=== PATIENT | female | born 1960 | race Caucasian/White ===

== ENCOUNTER 2019-09-08 01:39 | Day surgery (SDC) | payer BC, SELFPAY ==
[2019-09-06 11:01] VITALS: BMI 31.8
[2019-09-08 08:36] VITALS: BP 181/87; PULSE 94; RESP 18; TEMP 36.7; O2SAT 97; BMI 31.4
[2019-09-08] MEDS: LACTATED RINGERS 1,000 ML 150 ML IV CONT (08:53)
--- NOTE | 2019-09-08 09:08 | P.CONGI_ITS ---
Assessment and Plan Additional Plan This is a 59-year-old white female patient seen in evaluation at the request of Favioal Ramirez. Patient complains of abdominal pain, irregular bowel movements. She notices pain port that is poorly localized. Pain is often in the epigastric right upper quadrant and left upper quadrants of her abdomen. Patient reports irregular bowel movements. Constipation for which she is trying MiraLax. She denies any blood in her stools. She feel describes the pain a in mid abdomen as a ?like a rock, she states the pain is intermittent. and is often severe. She currently is trying omeprazole on milk of magnesia with no change in her symptoms. Medications include Anafranil, clonazepam, Prilosec, milk a magnesia No known drug allergies Review of systems last colonoscopy was 2011. EGD was more than 8 years ago. Physical exam reveals patient to be somewhat jittery. Vital signs stable. HEENT exam unremarkable. She is anicteric. Lungs are clear to auscultation and percussion. Heart is without murmur or extra sounds. Abdominal exam bowel sounds are present soft no localized tenderness evident. No masses are noted. Digital external rectal exam is normal. Impression 1. Abdominal pain. Epigastric pain seems to be the focus. But other abdominal pain described. No response to proton pump inhibitor at present. 2. Constipation. Change in bowel habit described. May be related to her abdominal discomfort. Current we trying milk of magnesia for control of bowel habits. \ Symptoms may be functional. She appears to have a certain degree of anxiety. Plan is to proceed with both colonoscopy and EGD. Other recommendations will be given after endoscopy. GI Consult Note Consult date/time: 09/08/19 09:08 HPI: Francisca Ragsdale is a 59 year old female [facility]LY [facility], [facility] Past Medical History Medical History (Updated 09/08/19 @ 09:13 by Cornelius Durant MD) Anxiety Obesity Social History Social History Smoking status: Never smoker Meds Home Medications and Allergies Home Medications Medication Instructions Recorded Confirmed Type clomipramine [Anafranil] 75 mg PO QACLUNCH 09/06/19 09/06/19 History clonazepam 0.25 mg PO HS PRN 09/06/19 09/06/19 History omeprazole 20 mg PO BID 09/06/19 09/06/19 History Allergies Allergy/AdvReac Type Severity Reaction Status Date / Time No Known Allergies Allergy Unknown Unverified 09/08/19 08:30 Vital Signs Vital Signs - 24 hr 09/08/19 08:36 Temperature 36.7 C Pulse Rate 94 Respiratory Rate 18 Blood Pressure 181/87 H Pulse Oximetry 97
--- NOTE | 2019-09-08 09:13 | P.PNAN_ITS ---
Anes - Initial Pre Proc Eval Procedure: Operation Date: 09/08/19 09:30 Proposed Procedures p Esophagogastroduodenoscopy & Colonoscopy - Domenico Carnes MD Date/Time: 09/08/19 09:13 Surgeon: Domenico Carnes MD Pre Op Diagnosis: Constipation, Epigastric Pain Patient Data Age: 59 Gender: F Height: 5 ft 4 in Weight: 82.9 kg Last Vital Signs Temp 36.7 C 09/08/19 08:36 Pulse 94 09/08/19 08:36 Resp 18 09/08/19 08:36 BP 181/87 H 09/08/19 08:36 Pulse Ox 97 09/08/19 08:36 Allergies Allergy/AdvReac Type Severity Reaction Status Date / Time No Known Allergies Allergy Unknown Unverified 09/08/19 08:30 Home Medications Medication Instructions Recorded Confirmed Type clomipramine [Anafranil] 75 mg PO QACLUNCH 09/06/19 09/06/19 History clonazepam 0.25 mg PO HS PRN 09/06/19 09/06/19 History omeprazole 20 mg PO BID 09/06/19 09/06/19 History Patient hx anesthesia problems: none Family hx anesthesia problems: none [facility] Past Medical History Medical History (Updated 09/08/19 @ 09:13 by Cornelius Durant MD) Anxiety Obesity Social History Social History Smoking status: Never smoker Anes - Eval Final PreProcedure Day of Procedure 09/08/19 09:13 Patient weight: obese Heart: regular rate and rhythm Airway: Mallampati scale class II Neurological: alert and oriented Last oral intake: >/= 8 hours ASA classification: II Emergent: no Anesthesia type and monitoring: general GIVS and standard monitoring Informed Consent: The patient's anesthetic plan and its attendant risks and benefits were discussed with the patient/family/POA. Questions were solicited and answers provided to the satisfaction of the patient/family/POA.
[2019-09-08] MEDS: BENZOCAINE (*SP) 60 ML SPRAY CAN (HURRICAINE) 1 SPRAY MUCOUS MEM (09:22)
[2019-09-08 09:47] VITALS: BP 131/80; PULSE 86; RESP 20; O2SAT 99
[2019-09-08 09:57] VITALS: BP 125/73; PULSE 88; RESP 18; O2SAT 100
== END 2019-09-08 10:51 | disposition home or self-care (01) ==
PROVIDERS: PCP Family Medicine; Visit Provider Internal Medicine Gastroenterology
PROC: 0DJ08ZZ Inspection of Upper Intestinal Tract, Via Natural or Artificial Opening Endoscopic (ICD-10-PCS; CPT 43235; principal; 2019-09-08 09:30)
DX: R10.13 Epigastric pain (principal); K64.8 Other hemorrhoids; K59.00 Constipation, unspecified; F41.9 Anxiety disorder, unspecified; E66.9 Obesity, unspecified; Z68.31 Body mass index [BMI] 31.0-31.9, adult
CPT/HCPCS: 45378; 43239; 87081; J2704; J7120

== ENCOUNTER 2019-09-11 07:23 | Outpatient (CLI) | payer BC, SELFPAY ==
--- NOTE | ~2019-09-11 | US_ITS ---
EXAMINATION: US right upper quadrant DATE: 09/11/2019 09:06 INDICATION: Right upper quadrant abdominal pain. TECHNIQUE: Multiple grayscale and Doppler ultrasound images of the abdomen were obtained. COMPARISON: Ultrasound 03/21/2009 FINDINGS: The visualized portions of the head, body, and tail of the pancreas are normal. There is di ffuse hepatic steatosis. No liver surface nodularity. There is normal flow in main portal vein. The g allbladder is normal in size. No gallstones or gallbladder wall thickening. There was no sonographic Multani sign. The common duct is normal and measures 5 mm. IMPRESSION: 1. Diffuse hepatic steatosis. Reviewed, dictated and finalized at location A. 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
== END 2019-09-11 07:24 | disposition home or self-care (01) ==
PROVIDERS: PCP Family Medicine; Visit Provider Internal Medicine Gastroenterology
DX: R10.9 Unspecified abdominal pain (principal); K76.0 Fatty (change of) liver, not elsewhere classified
CPT/HCPCS: 76705

== ENCOUNTER → 2019-10-03 10:16 | Outpatient (CLI) | payer BC, SELFPAY ==
--- NOTE | ~2019-10-03 | MM_ITS ---
EXAMINATION: MM screening [facility] BI w geoffrey HISTORY: Screening mammogram TECHNIQUE: Craniocaudal and mediolateral oblique 3-D tomosynthesis images were obtained and synthetic 2-D images were generated. CAD analysis was submitted and interpreted. COMPARISON: 04/15/2017, 06/22/2014 bilateral digital screening mammogram examinations BREAST PARENCHYMAL COMPOSITION: There are scattered areas of fibroglandular density. FINDINGS: There is stable mild fibroglandular asymmetry. Occasional benign appearing circumscribed op acities most consistent with intramammary lymph nodes. There is no evidence of suspicious mass, calci fication, or architectural distortion to suggest malignancy in either breast. There has been no suspi cious interval change. IMPRESSION: 1. No mammographic evidence of malignancy. 2. Recommend routine screening mammography in one year. BI-RADS Category 2: Benign finding(s). Reviewed, dictated and finalized at location A.
--- NOTE | ~2019-10-03 | US_ITS ---
EXAMINATION: US transvaginal DATE: 10/03/2019 11:25 INDICATION: Endometrial thickening seen on CT. Comparison:No prior studies for comparison. TECHNIQUE: Multiple endovaginal sonographic images of the pelvis performed. FINDINGS: The uterus measures 5.2 x 3.5 x 4.4 cm. The endometrial complex measures 2 mm. The ovaries are not visualized. There is no free fluid in the pelvis. There are no abnormal masses seen on either side. IMPRESSION: 1. Unremarkable pelvic ultrasound. No endometrial thickening. Reviewed, dictated and finalized at location A.
--- NOTE | ~2019-10-03 | DEXA_ITS ---
Bone Density Report Name: Francisca Ragsdale Age: 59 Sex: Female Ethnicity: White Date of : 1960 Indication: osteopenia; inflammatory bowel disease; postmenopausal Referring Provider: AUSTIN, ANTOINE Study: Bone densitometry was performed. Exam Date: October 03, 2019 Accession number: [id number] Bone Density: Region BMD T-score Z-score Classification AP Spine (L1-L4) 0.854 -1.8 -0.3 Osteopenia Femoral Neck (Left) 0.636 -1.9 -0.6 Osteopenia Total Hip (Left) 0.867 -0.6 0.4 Normal Femoral Neck (Right) 0.613 -2.1 -0.8 Osteopenia Total Hip (Right) 0.830 -0.9 0.1 Normal Total Hip Mean 0.849 -0.8 0.3 Normal World Health Organization criteria for BMD impression classify patients as: Normal (T-score at or above -1.0), Osteopenia (T-score between -1.0 and -2.5), or Osteoporosis (T-score at or below -2.5). 10-year Fracture Risk(1): Major Osteoporotic Fracture 9.4% Hip Fracture 1.2% Reported Risk Factors: [place] (), Neck BMD=0.613, BMI=31.3 (1) FRAX(R) Version 3.08. Fracture probability calculated for an untreated patient. Fracture probability may be lower if the patient has received treatment. Previous Exams: Region Exam Age BMD T-score BMD Change BMD Change Date g/cm2 vs Baseline vs Previous AP Spine(L1-L4) 10/03/2019 59 0.854 -1.8 -0.061* -0.061* 03/10/2011 51 0.915 -1.2 Total Hip(Left) 10/03/2019 59 0.867 -0.6 -0.057* -0.057* 03/10/2011 51 0.924 -0.1 Total Hip(Right) 10/03/2019 59 0.830 -0.9 -0.066* -0.066* 03/10/2011 51 0.896 -0.4 *Denotes significance at 95% confidence level, LSC for AP Spine = 0.022 g/cm2, LSC for Total Hip = 0.027 g/cm2 Clinical Information Provided by Patient: Has used the following medications: Vitamin D Has the following medical conditions: Inflammatory bowel diseases Patient maximum height was 64.5 Menopause Age: 51 No regular weight bearing exercise Does not regularly consume dairy products Drinks caffeinated beverages Onset of menses at age 12 Number of children 3 Impression: The patient has low bone mass, based on the Right Femoral Neck T-score. The patient has an estimated ten-year risk of hip fracture of 1.2% and an estimated ten-year risk of major fracture of 9.4%, based on the WHO FRAX algorithm. The BMD for the AP Spine(L1-L4) decreased, changing by -0.061 since the last DXA exam. The BMD for the Total Hip(Left) decreased, ch
== END ==
PROVIDERS: PCP Family Medicine; Visit Provider Nurse Practitioner
DX: Z12.31 Encounter for screening mammogram for malignant neoplasm of breast (principal); Z78.0 Asymptomatic menopausal state; R93.89 Abnormal findings on diagnostic imaging of other specified body structures; M85.89 Other specified disorders of bone density and structure, multiple sites
CPT/HCPCS: 76830; 77063; 77067; 77080

== ENCOUNTER → 2022-03-13 14:07 | Outpatient (CLI) | payer BC, SELFPAY ==
--- NOTE | ~2022-03-13 | MM_ITS ---
EXAMINATION: MM screening [facility] BI w geoffrey HISTORY: Screening mammogram TECHNIQUE: Craniocaudal and mediolateral oblique 3-D tomosynthesis images were obtained and synthetic 2-D images were generated. CAD analysis was submitted and interpreted. COMPARISON: 10/03/2019, 04/15/2017, 06/22/2014 BREAST PARENCHYMAL COMPOSITION: There are scattered areas of fibroglandular density. FINDINGS: A stable low-density mass in the central left breast is consistent with a benign finding. T here is no suspicious mass, calcification, or architectural distortion to suggest malignancy in eithe r breast. There has been no suspicious interval change. IMPRESSION: 1. No mammographic evidence of malignancy. 2. Recommend routine screening mammography in one year. BI-RADS Category 2: Benign finding(s). Reviewed, dictated and finalized at location A.
== END ==
PROVIDERS: PCP Obstetrics & Gynecology Gynecology; Visit Provider Obstetrics & Gynecology Gynecology
DX: Z12.31 Encounter for screening mammogram for malignant neoplasm of breast (principal)
CPT/HCPCS: 77063; 77067

== ENCOUNTER 2023-05-07 10:51 | Outpatient (CLI) | payer BC, SELFPAY ==
--- NOTE | ~2023-05-07 | US_ITS ---
EXAMINATION: US venous doppler [facility] DATE: 05/07/2023 11:29 INDICATION: Left lower limb pain. TECHNIQUE: Grayscale ultrasound images without and with compression and Doppler ultrasound images of the left lower extremity veins were obtained. COMPARISON: None. FINDINGS: The visualized portions of left common femoral vein, profunda (deep) femoral vein, femoral vein, popl iteal vein, peroneal veins, posterior tibial veins, and greater saphenous vein outflow are patent. IMPRESSION: 1. No deep venous thrombosis. Reviewed, dictated and finalized at location E.
== END 2023-05-07 10:52 | disposition home or self-care (01) ==
PROVIDERS: PCP Family Medicine; Visit Provider Family Medicine
DX: M79.605 Pain in left leg (principal)
CPT/HCPCS: 93971

== ENCOUNTER 2024-05-26 09:44 | Outpatient (CLI) | payer OTHER, SELFPAY ==
--- NOTE | ~2024-05-26 | MR_ITS ---
EXAMINATION: MR brain/brain stem wo/w con DATE: 05/26/2024 10:25 INDICATION: Visual disturbance. TECHNIQUE: Magnetic resonance imaging (MRI) of the brain and brainstem was performed without and with 18 mL MultiHance intravenous contrast. COMPARISON: None. FINDINGS: There are scattered areas of nonspecific increased T2-weighted signal intensity in the cere bral white matter and toni, which is within normal limits for the patient's age. There is no intracra nial hemorrhage, acute infarction, or abnormal intracranial mass lesion. The ventricles are normal in size. The paranasal sinuses are clear. The orbits are normal. The mastoid air cells are normal. IMPRESSION: 1. Normal aging brain. Reviewed, dictated and finalized at location A. 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 Normal aging brain.
== END 2024-05-26 09:45 | disposition home or self-care (01) ==
LOC: MICIMG 09:44
PROVIDERS: PCP Family Medicine; Visit Provider Internal Medicine
DX: H53.9 Unspecified visual disturbance (principal)
CPT/HCPCS: 70553; A9577

== ENCOUNTER 2024-10-19 13:41 | Outpatient (CLI) | payer OTHER, SELFPAY ==
--- NOTE | ~2024-10-19 | MM_ITS ---
EXAMINATION: MM screening [facility] w [facility]off[facility] HISTORY: Screening TECHNIQUE: Craniocaudal and mediolateral oblique 3-D tomosynthesis images were obtained and synthetic 2-D images were generated. CAD analysis was submitted and interpreted. COMPARISON: Comparison to multiple prior studies sequentially, with oldest reviewed study dated 10/2016. BREAST PARENCHYMAL COMPOSITION: Not dense: There are scattered areas of fibroglandular density. FINDINGS: There is no evidence of suspicious mass, calcification, or architectural distortion to sugg est malignancy in either breast. There has been no suspicious interval change. IMPRESSION: 1. No mammographic evidence of malignancy. 2. Recommend routine screening mammography in one year. BI-RADS Category 1: Negative Reviewed, dictated and finalized at location A.
--- OUTSIDE RECORDS SUMMARY | 2024-10-19 15:16 | XMS_ITS | Patient Health Record ---
Author Organization [facility] Address [address], [place] [address] Support Name Relationship Address Phone Francisca Ragsdale Guarantor Unknown [phone] Reason For Referral No Information Plan Of Treatment No Information
--- OUTSIDE RECORDS SUMMARY | 2024-10-19 15:16 | XMS_ITS | Continuity of Care Document ---
Author Organization [facility] [place] Address [address] [place] [address] Phone Care Team Providers Care Salon Sales Consultant Name Role Phone Linda Casey DO Unavailable Unavailable Allergies, Adverse Reactions, Alerts Substance Reaction Status Criticality No Known Allergies Active No Inform ation Medications Medication Instructions Dosage Effective Dates (start - stop) Status Comments Furosemide 20 MG Oral Tablet Take 1 tablet by mouth once daily - Active Sensipar 30 mg tablet take 1 tablet by oral route 2 times every day with food 30 MG - Active E21.0, D35.1 Colace 100 mg capsule take 1 capsule by oral route every day at bedtime as needed 100 MG - Active Anafranil 25 mg capsule take 4 capsule by oral route every day at bedtime 100 MG - Active clonazepam 0.5 mg tablet take 1 tablet by oral route every day as needed 0.5 MG - Active omeprazole 20 mg capsule,delayed release take 1 capsule by oral route every day 30 minutes to 1 hour before a meal as needed 20 MG - Active Procedures Procedure Date DSCHRG MED/CURRENT MED MERGE BASIC METABOLIC PANEL(BMP) ROUTINE VENIPUNCTURE [place] OFFICE [id number]-[id number] Visit Complexity Inherent To E/M 2024 BODY MASS INDEX DOCD SYST BP LT 130 MM HG DIAST BP < 80 MM HG BASIC METABOLIC PANEL(BMP) ROUTINE VENIPUNCTURE IL OFFICE [id number] Visit Complexity Inherent To E/M 2023 BODY MASS INDEX DOCD SYST BP LT 130 MM HG DIAST BP < 80 MM HG OFFICE [id number]-ARGEDTIA Visit Complexity Inherent To E/M 2023 BODY MASS INDEX DOCD SYST BP >= 140 MM HG6 IT DIAST BP 80-89 MM HG BASIC METABOLIC PANEL(BMP) PARATHYROID HORMONE (PTH) ROUTINE VENIPUNCTURE IL OFFICE [id number]-[id number] BODY MASS INDEX DOCD SYST BP >= 140 MM HG6 IT DIAST BP 80-89 MM HG ROUTINE VENIPUNCTURE IL CBC, INC PLATELETS AND DIFFERENTIAL COMPREHEN METABOLIC PANEL CMP LIPID PANEL THYROID STIMULATION HORMONE(TSH) 2023 URINALYSIS, REFLEX (UA) Brief Emotional/Behavioral A ssessment, With Scoring/Doct, Per Stndrd Instrument Depression screen annual Clin depression screen doc Admin influenza virus vac FLU VACC PRSV FREE INC ANTIG OFFICE [id number]-MED BODY MASS INDEX DOCD SYST BP LT 130 MM HG DIAST BP < 80 MM HG Advance Directives Directive Yes / No Effective Date File Name Life Support Not Answered N/A N/A Intubation Not Answered N/A N/A Antibiotics Not Answered N/A N/A IV Fluid Support Not Answered N/A N/A Tube Feed Not Answered N/A N/A Other Directive N/A N/A WARNING:The information contained in this section is historical and is provided for information only and does not constitute a legal document or any assurance that the information is still accurate. Please verify the information with the herrera of the legal document before using it for clinical purposes. Encounters Encounter Description Practice Location Reason(s) For Visit Diagnoses Date Provider Providers Copied on Encounter [facility], [address], [place], [place], [id number] , tel: [phone] [facility] No Information 5 Jacinto Mckeon. [address] [place] [address], [id number] , [place]. tel: [phone] [facility], [address], [place], [place], [id number] , [place] tel: [phone] [facility] No Information 5 Freeman Gaylin. [address] [place] [address], [address], [place]. tel: [phone] [facility], [address], [place], [place], [address] , [place] tel: [phone] [facility] No Information 5 Jacinto Mckeon. [address] [place] [address], [id number] , [place]. tel: [phone] Referring Provider: Linda Britton, [address] [place] [address], [address] . tel:[phone] [facility], [address], [place], [place], [id number] , [place] tel: [phone] [facility] No Information 5 Freeman Gaylin. [address] [place] [address], [address], [place]. tel: [phone] [facility], [address], [place], [place], [id number] , [place] tel: [phone] [facility] No Information 5 Alejandro Preciado. [address] [address], [place], [place], [id number] , [place]. tel: [phone] Referring Provider: Charisma Millard, [address] [place] [address], [address]. tel:[phone] [facility] [address], [place], [place], [address] , tel: [phone] [facility] 2 week (chief complaint)C hronic Conditions (chief complaint) Body mass index [BMI] 33.0-33.9, adultMajor depressive disorder, recurrent, moderateGeneralize d anxiety disorderPrimary hyperparathyroidis mEssential hypertensionParath yroid adenomaVisual disturbance Freeman [facility]. [address] [place] [address], [address], [place]. tel: [phone] Referring Provider: Linda Britton, [address] [place] [address], [address] . tel:[phone] [facility], [address], [place], [place], [address] , tel: [phone] [facility] No Information 4 Alejandro Preciado. [address] [place] [address], [id number] , . tel: [phone] Referring Provider: Charisma Millard, [address] [place] [address], [place], [address]. tel:[phone] OFFICE [id number]-ZTI-RP [facility], [address], [place], [place], [id number] , [place] tel: [phone] [facility] 2 week (chief complaint) Body mass index [BMI] 33.0-33.9, adultPrimary hyperparathyroidis mEssential hypertensionParath yroid adenomaAgitation 4 Freeman Charisma. [address] [place] [address], [address], [place]. tel: [phone] Referring Provider: Linda Britton, [address] [place] [address], [address] . tel:[phone] OFFICE OBIXY-CEY-PF TAILED [facility], [address], [place], [place], [id number] , tel: [phone] [facility] discuss results (chief complaint) Body mass index [BMI] 33.0-33.9, adultParathyroid adenomaEssential hypertensionFinger pain, rightPrimary hyperparathyroidis m 4 Freeman Charisma. [address] [place] [address], [address], [place]. tel: [phone] Referring Provider: Linda Britton, [address] [place] [address], [address] . tel:[phone] [facility], [address], [place], [place], [address] , tel: [phone] [facility] Parathyroid adenoma 4 Jacinto Mckeon. [address] [place] [address], [id number] , [place]. tel: [phone] [facility], [address], [place], [place], [id number] , tel: [phone] [facility] No Information 4 Alejandro Preciado. [address], [id number] , . tel: [phone] Referring Provider: Samantha Mcdonald, [address] [place] [address], [address] . tel:[phone] OFFICE COGHC-DTZ-NM [facility], [address], [place], [place], [id number] , [place] tel: [phone] [facility] 6 week check up (chief complaint) Body mass index [BMI] 33.0-33.9, adultElevated BP without diagnosis of hypertensionHyperc alcemiaVisual disturbanceTremorP rimary hypertensionPrimar y hyperthyroidismPri paulo hyperparathyroidis m 4 Tamara Singh. [address] [place] [address], [id number] , [place]. tel: [phone] Referring Provider: Linda Britton, [address] [place] [address], [address] . tel:[phone] [facility], [address], [place], [place], [address] , tel: [phone] [facility] Visual disturbanceGastroe sophageal reflux disease without esophagitisIrritab le bowel syndrome with constipationLabora tory examination 4 Jacinto Mckeon. [address] [place] [address], [id number] , [place]. tel: [phone] Referring Provider: Linda Britton, [address] [place] [address], [address] . tel:[phone] [facility], [address], [place], [place], [address] , tel: [phone] [facility] No Information 4 Alejandro Ozzy. [address], [id number] , . tel: [phone] Referring Provider: Linda Britton, [address] [place] [address], [address] . tel:[phone] [facility], [address], [place], [place], [address] , [place] tel: [phone] [facility] Visual disturbance 4 Jacinto Mckeon. [address] [place] [address], [id number] , [place]. tel: [phone] [facility], [address], [place], [place], [address] , [place] tel: [phone] [facility] No Information 4 Freeman Zafar. [address] [place] [address], [address], [place]. tel: [phone] OFFICE [id number]-EPH-EE -MED [facility], [address], [place], [place], [address] , [place] tel: [phone] [facility] Schaller new pt (chief complaint)C hronic Conditions (chief complaint)c hronic conditions (chief complaint) Body mass index [BMI] 33.0-33.9, adultMDD (major depressive disorder), recurrent episode, moderateGAD (generalized anxiety disorder)Visual disturbanceTremorI rritable bowel syndrome with constipationGastro esophageal reflux disease without esophagitisOsteope sly, unspecified locationHistory of Helicobacter pylori infectionEncounter for screening mammogram for malignant neoplasm of breast Tamara Singh. [address] [place] [address], [id number] , . tel: [phone] Referring Provider: Linda Britton, [address] [place] [address], [address] . tel:[phone] Family History Family Member Type Diagnosis Age At Onset No Information Immunizations Vaccine Date Status Comments Fluzone High-Dose Trivalent, preservative free administered Source: New Immuniza tion Record Payers Payer name Insurance type Covered libertarian ID Authoriza tion(s) [employer] MB [id number] [employer] [id number] Social History Type Description Quantity Date Captured Comments Alcohol Use Details Unknown Caffeine Use Details Unknown Tobacco Use Status No Information Smoking Status No Information Sex Female Sexual Orientation Straight or heterosexual Gender Identity Female Chief Complaint And Reason For Visit No Information Reason For Referral Reason For Referral No Information Plan Of Treatment Date Type Action Status Goal Dietary manageme nt education, guidance, and counseling completed Goal Dietary manageme nt education, guidance, and counseling completed Goal Dietary manageme nt education, guidance, and counseling completed Goal Dietary manageme nt education, guidance, and counseling completed Goal Dietary manageme nt education, guidance, and counseling completed Referral Referred To: Edinson Montero MD [address] [facility] [address] [place], [phone] Ordered: Referrals: Surgery. Edinson Montero MD. Evaluation/diagnostic/treatment - Level 3 Appointment date/timeframe: 09/02/2024 ordered Referral Referred To: [address] [place] [address] Dr [place], [phone] Ordered: NM scan parathyroid Appointment date/timeframe: 09/02/2024 ordered Referral Referred To: Dr. Montgomery Ordered: Referrals: Neurology. Dr. Montgomery. Evaluation/diagnostic/treatment - Level 3 Appointment date/timeframe: 11/03/2024 ordered Referral Referred To: [address], [address] [phone] Ordered: MRI brain with and without contrast Appointment date/timeframe: 06/10/2024 ordered Referral Referred To: [address], [phone] Ordered: SCREENING MAMMOGRAM (CAD) Appointment date/timeframe: 11/23/2024 ordered Appointment Francisca Ragsdale BOOKED History Of Present Illness Encounter Date Complaint History Of Prese nt Illness 2 week Here for a 2-wee k follow-up after adjusting blood pressure medication and keeping an eye on her calcium levels due to newly diagnosed parathyroid adenoma.She did not tolerate olmesartan so it was switched to amlodipine.She states she is not taking amlodipine she is just taking the water pill furosemide. She had increased agitation and tremoring with the amlodipine. States she is sensitive to medication.Has not scheduled with Neuro yet.Was referred to Dr. Amador due to visual disturbances of the left eye. She occasionally sees flashes of light in front of her. It happens when she stands up. She sometimes gets a headache.No dizziness.Had brain MRI that was unremarkable. She had seen her eye doctor.Number given to schedule with Dr. Marinelli 2/7Mammmanoj ash Chronic Conditions *See Chronic Conditions HPI 2 week Her blood pressu re was elevated and she was started on olmesartan.Her blood pressure is better and her cuff is accurate but she is having increased agitation after taking the medication. She is having increased hot flashes, upset stomach and dizziness. These all started after taking the medication.Workup of hypercalcemia showing primary hyperparathyroidism with positive sestamibi scan of the right upper lobe adenoma found.States that she has been having symptoms of hypercalcemia for a while. She is a Zoroastrian and would not want any blood products but is agreeable to surgical consultation.She has an appointment with the surgeon in August.She was instructed to not travel. She did have a cruise she was going to go on mid July which she is attempting to have reimbursed. [facility] results Patient is here with her to discuss results of sestamibi scan.She is a fairly new patient.Workup of hypercalcemia showing primary hyperparathyroidism with positive sestamibi scan of the right upper lobe adenoma found.States that she has been having symptoms of hypercalcemia for a while. She is a Zoroastrian and would not want any blood products but is agreeable to surgical consultation.Her blood pressure has been elevated on numerous occasions in the office. Strong family history of hypertension. She is agreeable to starting medication.She also is reporting right middle finger pain. States that she has had a little bump there for quite some time. It is not getting any bigger. Since she has had the new diagnosis she is concerned that she has cancer somewhere.She would like to focus on the surgery of the parathyroid adenoma first before seeing another specialist. 6 week check up The patient pres ents for follow-up regarding her visual disturbance.Recent MRI did not show an explanation of her symptoms.Patient reports developing a visual disturbance of her left eye approximately 3 months ago. She reports this occurs with changing positions and describes it as a bright white light which shakes. This resolves spontaneously. She reports improvement but states thsi is occurring multiple times a day. reports adequate hydrationShe was noted to have a resting tremor bilaterally which she states has been going on since starting Anafranil over 30 years ago. She denies a family history of Parkinson's.reports normal eye exam in MarchBlood pressure is elevated today but was normal at her last visit. She reports feeling mildly anxious for MRI results which could be a contributing factor. She is asymptomatic and has a blood pressure cuff at home for monitoring.She was also noted to have hypocalcemia with recent labs. She is not currently taking any source of calcium supplementation. new pt Patient presents to office to establish care as a new patient.[facility] is and lives at home with her . They have 3 biological sons and 2 adopted children, 1 boy and 1 girl. 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 PyloriSurgeries: tonsillectomy, D&C d/t molar , varicose veins L legScreenings:Colorectal screening -2019, normalMammogram: duePap: 2022 - normalDEXA: 2021Eye exam - 02/2024 specialist early Sept for vision changeFamily hxMother: age 68 d/t vulvar cancer, HTN, obesity, PVD, eczemaFather: age 58 d/t CADSister: HTN, CAD w/ stentingSister: lichen planus, HTNPaternal grandmother: , DMMaternal grandfather: , leukemiaImmunizations:Flu - OVID - 3Pneumonia - recommended; pt states she will considerTetanus - yesShingrix : 2Tobacco: noAlcohol: seldomCaffeine: yesExercise: noCurrent concerns:Patient reports developing a visual disturbance of her left eye approximately 2 months ago. She reports this occurs with changing positions and describes it as a bright white light which shakes. This resolves spontaneously. She reports improvement but states thsi is occurring multiple times a day. reports adequate hydrationShe was noted to have a resting tremor bilaterally which she states has been going on since starting Anafranil over 30 years ago. She denies a family history of Parkinson's.reports normal eye exam last month Chronic Conditions *See Chronic Conditions HPI chronic conditions *See Chronic Conditions HPI Functional Status Date Functional Assessmen t No Information Instructions Date Instruction Additional Infor jose Continue on current medication and follow with psychiatry. Call if anything worsens or changes Related to Major depressive disorder, recurrent, moderate As above. Related to Gener alized anxiety disorder Call Dr. Amador to get sc heduled.I will hold off ordering any further testing like a carotid ultrasound once you have seen neurology and the surgeon.Call with any questions or concernsBMP todayReturn as scheduled in September Related to Visual disturbance Keep your follow-up with the surgeon on August 19.Continue on the furosemide to help with the elevated calcium Related to Primary hyperparathyroidism As above. Related to Parat hyroid adenoma Stay off of the amlo dipine.Continue on the furosemide. This is helping her blood pressure and hopefully her calcium 2. Related to Essential hypertension Disease process Giving encouragement to exercise Related to Body mass index (BMI) 33.0-33.9, adult Disease process Dietary management e ducation, guidance, and counseling Related to Body mass index (BMI) 33.0-33.9, adult You feel this is a s gordon effect of the olmesartan.We will see if switching to amlodipine will help reduce agitation and help with hot flashes, upset stomach, etc.Call with any questions or concernsBMP todayReturn in 2 weeks Related to Agitation The studies show paola t you have a benign tumor on the parathyroid gland.Keep her scheduled follow-up with [facility] in August.Paperwork filled out for cruise reimbursement. We discussed no travel Related to Primary hyperparathyroidism You feel that you ar e not tolerating this medication. Your blood pressure is excellent and your cuff is accurate.I will switch her medication to amlodipine. You will take this once a day. Please return in a couple weeks so we can make sure your blood pressure is still doing well and that the symptoms are improving. Related to Essential hypertension As above. Related to Parat hyroid adenoma Disease process Dietary management e ducation, guidance, and counseling Related to Body mass index (BMI) 33.0-33.9, adult Giving encouragement to exercise Related to Body mass index (BMI) 33.0-33.9, adult I have sent in a [employer] called olmesartan to the pharmacy.Take this once a day.Monitor your blood pressure daily with your home cuff and bring it with you at your appointment in 2 weeks.We will draw labs at that time Related to Essential hypertension For now, we will hol d off on any further referral to a hand specialist.If this significantly worsens or changes please let me know.Call with any questions or concernsNo labs todayReturn in 2 weeks Related to Finger pain, right As above. Related to Parat hyroid adenoma The studies show paola t you have a benign tumor on the parathyroid gland.I will refer you to [facility] for evaluation to have this removed. Related to Primary hyperparathyroidism Giving encouragement to exercise Related to Body mass index (BMI) 33.0-33.9, adult Dietary management e ducation, guidance, and counseling Related to Body mass index (BMI) 33.0-33.9, adult Disease process I will send a referr al to neurology to further evaluate this.I recommend Dr. Montgomery with [facility] Related to Visual disturbance as stated above Related to Tremo r We will repeat labs today.Continue to hold off on taking in the source of calcium supplementation Related to Hypercalcemia Blood pressure is sl ightly elevated today.This was normal at your last visit.Please check blood pressure readings at home over the next week and call the office with your numbers for review.Please call questions or concerns prior to next appointment.Follow-up with me in 4 months Related to Elevated BP without diagnosis of hypertension Giving encouragement to exercise Related to Body mass index (BMI) 33.0-33.9, adult Dietary management e ducation, guidance, and counseling Related to Body mass index (BMI) 33.0-33.9, adult I would recommend ca lcium and vitamin D supplementation to prevent this from worsening.These can be purchased wayf-hle-wrqqnnr.Calcium 500 mg daily and vitamin D or cholecalciferol 2000 units daily Related to Osteopenia, unspecified location Your episodes are li lawrence IBS related.Continue to manage the constipation as consuming foods that are high in fiber and drinking plenty of water.You can start Colace 100 mg as needed for daily stool softener to also help.Please call us if this worsens.Avoid your food triggers Related to Irritable bowel syndrome with constipation This is manage with omeprazole.Call us if the acid reflux worsens Related to Gastroesophageal reflux disease without esophagitis as stated above Related to Tremo r We will send an orde r for your mammogram to [facility] today.Please call to schedule Related to Visual disturbance This is managed by Nestor Alexander.Follow up with her as scheduled.We will schedule you for fasting labs.CBC, CMP, lipid panel, TSH, and urinalysisFlu shot was administered today. We also discussed the pneumonia vaccine which you plan to think about.COVID vaccine can be received from the pharmacy.Please call questions or concerns prior to next appointment provide follow-up again in 6 weeks Related to MDD (major depressive disorder), recurrent episode, moderate as stated above Related to STAR ( generalized anxiety disorder) Giving encouragement to exercise Related to Body mass index (BMI) 33.0-33.9, adult Dietary management e ducation, guidance, and counseling Related to Body mass index (BMI) 33.0-33.9, adult Disease process Assessments Type Assessment Date No Information Patient Care Teams Name Effective Dates (start - stop) Status Members No Information
--- OUTSIDE RECORDS SUMMARY | 2024-10-19 15:16 | XMS_ITS ---
Author Organization [facility] keren Address [address] [facility] [address] [place] [address] Care Team Providers Care Global Risk Management Director Name Role Phone zzzzMigration, zzzzProvider Unavailable Unav ailable REASON FOR VISIT EMR-Jem Encounters Encounter Location Date Provider Diagnosis [facility] [address] [facility] [facility] [address] [place] [address] 05/03/2023 zzzzProvider zzzzMigration Plan Of Treatment No Information Progress Notes * Francisca RAGSDALE DDOB:1960 (64 yo F)Acc No.[id number]:05/03/2023 Patient: Noah Francisca MARTINEZ :1960 A ge:63 Y S ex:Female Address:[address] [place] [address], [address] Subjective: * Chief Complaints: * E MR-Jem * Medical History: * Surgical History: * Hospitalization/Major Diagno stic Procedure: * Medications: Objective: * Vitals: * Physical Examination: Assessment: Plan: * Treatment: * Procedure Codes: * true * Date: Generated for Belkisi ng/Faabadg/eTransmitting on: 0 10/19/2024 03:16 PM CDT
== END 2024-10-19 13:42 | disposition home or self-care (01) ==
LOC: ANHIMG 13:43
PROVIDERS: PCP Internal Medicine; Visit Provider Internal Medicine
DX: Z12.31 Encounter for screening mammogram for malignant neoplasm of breast (principal)
CPT/HCPCS: 77063; 77067